=== PATIENT | male | born 1945 | race Hispanic/Latino ===

== ENCOUNTER → 2017-12-10 | Outpatient (CLI) | payer OTHER | END | disposition home or self-care (01) | LOC: OIH 12:57 | PROVIDERS: ATTEND Internal Medicine | DX: I10 Essential (primary) hypertension (principal); M47.895 Other spondylosis, thoracolumbar region | CPT/HCPCS: 71046 ==

== ENCOUNTER → 2018-06-27 | Outpatient (CLI) | payer OTHER | END | disposition home or self-care (01) | LOC: OIH 12:38 | PROVIDERS: ATTEND Internal Medicine | DX: I10 Essential (primary) hypertension (principal) | CPT/HCPCS: 71046 ==

== ENCOUNTER → 2019-06-24 | Outpatient (CLI) | payer OTHER | END | disposition home or self-care (01) | LOC: OIH 08:21 | PROVIDERS: ATTEND Internal Medicine | DX: I10 Essential (primary) hypertension (principal) | CPT/HCPCS: 71046 ==